=== PATIENT | male | born 1975 | race Two or more races ===

== ENCOUNTER 2022-02-25 18:55 | Inpatient (IN) | payer MEDICAID, OTHER ==
[~2022-02-25] VITALS: Ht 160 cm; Wt 72.5 kg
[2022-02-25 20:22] LABS: Basophils # (auto) 0 10 ^3/uL (0-0.2); Eosinophils # (auto) 0 10 ^3/uL (0-0.8); Eosinophils % (auto) 0.3 % (0.0-7.0); Lymphocytes # (auto) 0.8 10 ^3/uL (0.4-5.4); Monocytes # (auto) 0.5 10 ^3/uL (0-1.3)
[2022-02-25 20:23] LABS: Basophils % (auto) 0.4 % (0.0-2.0); Hematocrit 27.7 % (41.0-53.0); Hemoglobin 9.9 g/dL (13.5-17.5); Mean Corpuscular Hemoglobin 36.9 pg (28.0-32.0); Mean Corpuscular Hgb Conc. 35.9 g/dL (32.0-36.0); Mean Corpuscular Volume 102.9 fL (80.0-100.0); Monocytes % (auto) 8.2 % (0.0-12.0); Neutrophils # (auto) 4.5 10 ^3/uL (1.6-8.6); Neutrophils % (auto) 77.1 % (37.0-80.0); Red Blood Cells 2.69 10^6/uL (4.5-5.90); Red Cell Distribution Width 16.3 % (11.8-14.3); White Blood Cell 5.8 10^3/uL (4.4-10.8)
[2022-02-25 20:38] LABS: Albumin 1.8 g/dL (3.4-5.0); BUN/Creatinine Ratio 17.1; Calcium 8.1 mg/dL (8.5-10.1); Potassium 4.7 mmol/L (3.5-5.1)
[2022-02-25 20:40] LABS: Bilirubin, Total 3.9 mg/dL (0.2-1.0)
[2022-02-25 20:46] LABS: INR 1.33 (0.9-1.15)
[2022-02-25] MEDS ORDERED: LACTULOSE 10g/15ml SOLN 473ML PR ONE (21:00)
[2022-02-25] MEDS ORDERED: MORPHINE SULFATE INJ 2 MG/ml SYRG IV PRN (21:30)
[2022-02-25] MEDS ORDERED: ONDANSETRON HCL 4 MG/2 ML VIAL IV PRN (21:30)
[2022-02-25] MEDS ORDERED: NITROGLYCERIN 0.4 MG SL TAB SL PRN (21:30)
[2022-02-25] MEDS ORDERED: LACTULOSE 20Gm/30ML SOLN ONE (22:21)
[2022-02-26] MEDS ORDERED: LACTULOSE 20Gm/30ML SOLN ONE (04:09)
[2022-02-26] MEDS: LACTULOSE 10g/15ml SOLN 473ML PR SCH ×2 (04:21→09:19)
[2022-02-26] MEDS ORDERED: ALBUMIN 5% 250 ML IV ONE (04:45)
[2022-02-26] MEDS: SPIRONOLACTONE 25 MG TAB PO SCH ×2 (05:55→18:09)
[2022-02-26 06:38] LABS: Basophils # (auto) 0 10 ^3/uL (0-0.2); Eosinophils # (auto) 0 10 ^3/uL (0-0.8); Hemoglobin 9.1 g/dL (13.5-17.5); Lymphocytes # (auto) 0.9 10 ^3/uL (0.4-5.4); Monocytes # (auto) 0.5 10 ^3/uL (0-1.3)
[2022-02-26 06:43] LABS: Albumin 1.9 g/dL (3.4-5.0); BUN/Creatinine Ratio 19.9; Calcium 7.9 mg/dL (8.5-10.1); Potassium 4.7 mmol/L (3.5-5.1)
[2022-02-26 06:46] LABS: Bilirubin, Total 4.2 mg/dL (0.2-1.0); Total Protein 7.5 g/dL (6.4-8.2)
[2022-02-26 07:03] LABS: Basophils % (auto) 0.3 % (0.0-2.0); Eosinophils % (auto) 0.6 % (0.0-7.0); Hematocrit 25.5 % (41.0-53.0); Lymphocytes % (auto) 17.7 % (10.0-50.0); Mean Corpuscular Hemoglobin 36.5 pg (28.0-32.0); Mean Corpuscular Hgb Conc. 35.5 g/dL (32.0-36.0); Mean Corpuscular Volume 102.7 fL (80.0-100.0); Monocytes % (auto) 8.9 % (0.0-12.0); Neutrophils # (auto) 3.8 10 ^3/uL (1.6-8.6); Neutrophils % (auto) 72.5 % (37.0-80.0); Nucleated Red Blood Cells % 0.2 %; Red Blood Cells 2.48 10^6/uL (4.5-5.90); Red Cell Distribution Width 15.7 % (11.8-14.3); White Blood Cell 5.3 10^3/uL (4.4-10.8)
[2022-02-26] MEDS: rifAXIMin 550 MG TAB PO SCH ×2 (09:10→21:51)
[2022-02-26] MEDS: FUROSEMIDE 40 MG TAB PO SCH (09:10)
[2022-02-26] MEDS: PANTOPRAZOLE 40 MG/10 ML VIAL INJ IV SCH (09:10)
[2022-02-26] MEDS: LACTULOSE 20Gm/30ML SOLN PO SCH ×3 (10:39→21:50)
[2022-02-27] VITALS: BP 128/85
[2022-02-27 01:04] VITALS: BP 128/85
[2022-02-27 04:54] VITALS: BP 128/76
[2022-02-27 05:12] LABS: Basophils # (auto) 0.1 10 ^3/uL (0-0.2); Eosinophils # (auto) 0.1 10 ^3/uL (0-0.8); Eosinophils % (auto) 0.8 % (0.0-7.0); Lymphocytes % (auto) 15.8 % (10.0-50.0); Monocytes # (auto) 0.7 10 ^3/uL (0-1.3); Monocytes % (auto) 9.5 % (0.0-12.0)
[2022-02-27 05:14] LABS: Basophils % (auto) 1.2 % (0.0-2.0); Hematocrit 23.1 % (41.0-53.0); Lymphocytes # (auto) 1.1 10 ^3/uL (0.4-5.4); Mean Corpuscular Hemoglobin 35.9 pg (28.0-32.0); Mean Corpuscular Hgb Conc. 34.6 g/dL (32.0-36.0); Mean Corpuscular Volume 103.7 fL (80.0-100.0); Neutrophils # (auto) 5.3 10 ^3/uL (1.6-8.6); Neutrophils % (auto) 72.7 % (37.0-80.0); Red Blood Cells 2.22 10^6/uL (4.5-5.90); Red Cell Distribution Width 16.4 % (11.8-14.3); White Blood Cell 7.2 10^3/uL (4.4-10.8)
[2022-02-27 05:26] LABS: BUN/Creatinine Ratio 21.8; Calcium 7.6 mg/dL (8.5-10.1); Potassium 4.5 mmol/L (3.5-5.1)
[2022-02-27] MEDS: LACTULOSE 20Gm/30ML SOLN PO SCH ×3 (06:12→21:33)
[2022-02-27] MEDS: SPIRONOLACTONE 25 MG TAB PO SCH ×2 (06:12→18:37)
[2022-02-27 09:00] VITALS: BP 123/72
[2022-02-27] MEDS: PANTOPRAZOLE 40 MG/10 ML VIAL INJ IV SCH (09:33)
[2022-02-27] MEDS: rifAXIMin 550 MG TAB PO SCH ×2 (09:33→21:33)
[2022-02-27] MEDS: FUROSEMIDE 40 MG TAB PO SCH (09:34)
[2022-02-27 18:38] VITALS: BP 118/73
[2022-02-27 21:40] VITALS: BP 108/75
[2022-02-28 04:58] LABS: Basophils # (auto) 0 10 ^3/uL (0-0.2); Eosinophils # (auto) 0.1 10 ^3/uL (0-0.8); Eosinophils % (auto) 1.5 % (0.0-7.0); Lymphocytes # (auto) 1.2 10 ^3/uL (0.4-5.4); Lymphocytes % (auto) 16.8 % (10.0-50.0); Monocytes # (auto) 0.7 10 ^3/uL (0-1.3); White Blood Cell 7.1 10^3/uL (4.4-10.8)
[2022-02-28 05:00] VITALS: BP 104/64
[2022-02-28 05:03] LABS: Basophils % (auto) 0.4 % (0.0-2.0); Hematocrit 23.2 % (41.0-53.0); Mean Corpuscular Hemoglobin 35.8 pg (28.0-32.0); Mean Corpuscular Hgb Conc. 34.6 g/dL (32.0-36.0); Mean Corpuscular Volume 103.5 fL (80.0-100.0); Monocytes % (auto) 10.2 % (0.0-12.0); Neutrophils # (auto) 5.1 10 ^3/uL (1.6-8.6); Neutrophils % (auto) 71.1 % (37.0-80.0); Red Blood Cells 2.25 10^6/uL (4.5-5.90); Red Cell Distribution Width 15.8 % (11.8-14.3)
[2022-02-28 05:28] LABS: BUN/Creatinine Ratio 18.5; Calcium 7.6 mg/dL (8.5-10.1); Potassium 4.5 mmol/L (3.5-5.1)
[2022-02-28] MEDS: SPIRONOLACTONE 25 MG TAB PO SCH ×2 (06:00→18:00)
[2022-02-28] MEDS: LACTULOSE 20Gm/30ML SOLN PO SCH ×3 (06:05→20:42)
[2022-02-28 06:12] VITALS: BP 99/60
[2022-02-28 09:01] VITALS: BP 96/56
[2022-02-28] MEDS: PANTOPRAZOLE 40 MG/10 ML VIAL INJ IV SCH (09:08)
[2022-02-28] MEDS: rifAXIMin 550 MG TAB PO SCH ×2 (09:08→20:42)
[2022-02-28] MEDS: FUROSEMIDE 40 MG TAB PO SCH (09:08)
[2022-02-28] MEDS ORDERED: MORPHINE SULFATE INJ 2 MG/ml SYRG IV PRN (11:15)
[2022-02-28 13:26] VITALS: BP 104/65
[2022-02-28 16:57] VITALS: BP 94/54
[2022-02-28 21:09] VITALS: BP 103/65
[2022-03-01 05:06] VITALS: BP 106/69
[2022-03-01] MEDS: LACTULOSE 20Gm/30ML SOLN PO SCH ×2 (06:05→14:00)
[2022-03-01] MEDS: SPIRONOLACTONE 25 MG TAB PO SCH (06:06)
[2022-03-01 07:05] LABS: Basophils # (auto) 0 10 ^3/uL (0-0.2); Basophils % (auto) 0.5 % (0.0-2.0); Eosinophils # (auto) 0.1 10 ^3/uL (0-0.8); Monocytes # (auto) 0.6 10 ^3/uL (0-1.3); Nucleated Red Blood Cells % 0.1 %; Red Blood Cells 2.18 10^6/uL (4.5-5.90)
[2022-03-01 07:10] LABS: Eosinophils % (auto) 1.2 % (0.0-7.0); Hematocrit 22.6 % (41.0-53.0); Lymphocytes # (auto) 1.1 10 ^3/uL (0.4-5.4); Lymphocytes % (auto) 21.3 % (10.0-50.0); Mean Corpuscular Hemoglobin 36.5 pg (28.0-32.0); Mean Corpuscular Hgb Conc. 35.2 g/dL (32.0-36.0); Mean Corpuscular Volume 103.5 fL (80.0-100.0); Monocytes % (auto) 11.3 % (0.0-12.0); Neutrophils # (auto) 3.4 10 ^3/uL (1.6-8.6); Neutrophils % (auto) 65.7 % (37.0-80.0); Red Cell Distribution Width 15.6 % (11.8-14.3); White Blood Cell 5.2 10^3/uL (4.4-10.8)
[2022-03-01 07:25] LABS: Potassium 4.4 mmol/L (3.5-5.1)
[2022-03-01 07:29] LABS: BUN/Creatinine Ratio 16.5; Calcium 7.8 mg/dL (8.5-10.1)
[2022-03-01 09:00] VITALS: BP 101/63
[2022-03-01] MEDS ORDERED: LACT10SO3 PO (09:44)
[2022-03-01] MEDS ORDERED: FURO40TA4 PO (09:44)
[2022-03-01] MEDS ORDERED: RIFA550T PO (09:44)
[2022-03-01] MEDS ORDERED: SPIR25TA PO (09:44)
[2022-03-01] MEDS: PANTOPRAZOLE 40 MG/10 ML VIAL INJ IV SCH (10:27)
[2022-03-01] MEDS: FUROSEMIDE 40 MG TAB PO SCH (10:31)
[2022-03-01] MEDS: rifAXIMin 550 MG TAB PO SCH (10:32)
[2022-03-01 12:39] VITALS: BP 101/63
[2022-03-01 13:00] VITALS: BP 106/69
== END 2022-03-01 17:33 | disposition home or self-care (01) | DRG 279 ==
LOC: EDBD 18:55 → ER 18:55 → TELE 21:22 → TELE-CENTR 02-26 23:37 → CENTRAL 02-28 10:47
PROVIDERS: ADMIT Nurse Practitioner; ATTEND Internal Medicine Pulmonary Disease
PROC: 0W9G3ZZ Drainage of Peritoneal Cavity, Percutaneous Approach (ICD-10-PCS; principal; 2022-02-27)
DX: K72.90 Hepatic failure, unspecified without coma (principal); K76.7 Hepatorenal syndrome; D61.818 Other pancytopenia; E43 Unspecified severe protein-calorie malnutrition; D68.9 Coagulation defect, unspecified; R18.8 Other ascites; K74.60 Unspecified cirrhosis of liver; Z20.822 Contact with and (suspected) exposure to COVID-19; Z68.27 Body mass index [BMI] 27.0-27.9, adult
CPT/HCPCS: 36415; 70450; 71045; 76705; 76942; 80048; 80053; 82140; 83986; 85025; 85610; 87205; 89051; 93005; C9113; G0378; J2405

== ENCOUNTER 2022-03-12 21:47 | Inpatient (IN) | payer MEDICAID ==
[~2022-03-12] VITALS: Ht 167.6 cm; Wt 65.0 kg
[~2022-03-12 21:47] MED LIST: FURO40TA4 PO; LACT10SO3 PO; RIFA550T PO; SPIR25TA PO
[2022-03-12] MEDS ORDERED: LACTULOSE 20Gm/30ML SOLN PO ONE (22:15)
[2022-03-13] VITALS (7 sets, daily range): BP systolic 90–117; BP diastolic 52–72
[2022-03-13 00:19] LABS: Albumin 1.6 g/dL (3.4-5.0); Calcium 7.8 mg/dL (8.5-10.1); Potassium 5.1 mmol/L (3.5-5.1)
[2022-03-13 00:21] LABS: Bilirubin, Total 3.5 mg/dL (0.2-1.0); INR 1.38 (0.9-1.15); Partial Thromboplastin Time 37.9 sec (23.6-33.0); Total Protein 7.6 g/dL (6.4-8.2)
[2022-03-13 00:26] LABS: Mean Corpuscular Hgb Conc. 34.6 g/dL (32.0-36.0); Nucleated Red Blood Cells % 0.1 %; Red Blood Cells 2.49 10^6/uL (4.5-5.90); Red Cell Distribution Width 15.6 % (11.8-14.3)
[2022-03-13 00:28] LABS: Basophils # (auto) 0 10 ^3/uL (0-0.2); Basophils % (auto) 0.5 % (0.0-2.0); Eosinophils # (auto) 0 10 ^3/uL (0-0.8); Eosinophils % (auto) 0.3 % (0.0-7.0); Hematocrit 25.3 % (41.0-53.0); Hemoglobin 8.8 g/dL (13.5-17.5); Lymphocytes # (auto) 0.9 10 ^3/uL (0.4-5.4); Lymphocytes % (auto) 16.1 % (10.0-50.0); Mean Corpuscular Hemoglobin 35.2 pg (28.0-32.0); Mean Corpuscular Volume 101.6 fL (80.0-100.0); Monocytes # (auto) 0.6 10 ^3/uL (0-1.3); Monocytes % (auto) 10.1 % (0.0-12.0); Neutrophils # (auto) 4.1 10 ^3/uL (1.6-8.6); White Blood Cell 5.6 10^3/uL (4.4-10.8)
[2022-03-13] MEDS ORDERED: MORPHINE SULFATE INJ 2 MG/ml SYRG IV PRN (01:30)
[2022-03-13] MEDS ORDERED: NITROGLYCERIN 0.4 MG SL TAB SL PRN (01:30)
[2022-03-13] MEDS ORDERED: ONDANSETRON HCL 4 MG/2 ML VIAL IV PRN (01:30)
[2022-03-13] MEDS: LACTULOSE 10g/15ml SOLN 473ML PR SCH ×2 (03:30→06:00)
[2022-03-13] MEDS ORDERED: LACTULOSE 20Gm/30ML SOLN ONE (05:31)
[2022-03-13] MEDS: SPIRONOLACTONE 25 MG TAB PO SCH ×2 (06:00→17:37)
[2022-03-13] MEDS: LACTULOSE 20Gm/30ML SOLN PO SCH ×3 (06:37→22:05)
[2022-03-13] MEDS: FUROSEMIDE 40 MG TAB PO SCH (10:00)
[2022-03-13] MEDS ORDERED: ALBUMIN 25% 50 ML IV ONE (11:30)
[2022-03-13] MEDS: rifAXIMin 550 MG TAB PO SCH ×2 (11:54→22:05)
[2022-03-13] MEDS ORDERED: phytonadione 10 MG in SODIUM CHL 0.9% 50 ML IV ONE (14:15)
[2022-03-14] VITALS (13 sets, daily range): BP systolic 86–110; BP diastolic 48–67
[2022-03-14 05:41] LABS: Basophils # (auto) 0 10 ^3/uL (0-0.2); Eosinophils # (auto) 0 10 ^3/uL (0-0.8); Lymphocytes # (auto) 1.1 10 ^3/uL (0.4-5.4); Monocytes # (auto) 0.7 10 ^3/uL (0-1.3)
[2022-03-14 05:42] LABS: Basophils % (auto) 0.4 % (0.0-2.0); Hematocrit 22.9 % (41.0-53.0); Hemoglobin 8.3 g/dL (13.5-17.5); Lymphocytes % (auto) 23.6 % (10.0-50.0); Mean Corpuscular Hemoglobin 36.4 pg (28.0-32.0); Mean Corpuscular Hgb Conc. 36.1 g/dL (32.0-36.0); Mean Corpuscular Volume 100.6 fL (80.0-100.0); Monocytes % (auto) 14.7 % (0.0-12.0); Neutrophils # (auto) 2.8 10 ^3/uL (1.6-8.6); Neutrophils % (auto) 60.3 % (37.0-80.0); Nucleated Red Blood Cells % 0.1 %; Red Blood Cells 2.27 10^6/uL (4.5-5.90); Red Cell Distribution Width 15.6 % (11.8-14.3); White Blood Cell 4.7 10^3/uL (4.4-10.8)
[2022-03-14 05:44] LABS: Albumin 1.3 g/dL (3.4-5.0); BUN/Creatinine Ratio 15.7; Calcium 7.3 mg/dL (8.5-10.1)
[2022-03-14 05:47] LABS: Bilirubin, Total 2.5 mg/dL (0.2-1.0); Total Protein 6.1 g/dL (6.4-8.2)
[2022-03-14] MEDS: SPIRONOLACTONE 25 MG TAB PO SCH ×2 (06:12→22:15)
[2022-03-14] MEDS: LACTULOSE 20Gm/30ML SOLN PO SCH ×3 (06:12→22:19)
[2022-03-14] MEDS ORDERED: LIDOCAINE 2%HCL (LOCAL ANESTH.) INJ 10ml MDV ONE (11:41)
[2022-03-14] MEDS: FUROSEMIDE 40 MG TAB PO SCH (16:06)
[2022-03-14] MEDS: rifAXIMin 550 MG TAB PO SCH ×2 (16:07→22:20)
[2022-03-14] MEDS: ALBUMIN 25% 100 ML IV SCH ×2 (16:10→22:16)
[2022-03-15] MEDS: ALBUMIN 25% 100 ML IV SCH (04:11)
[2022-03-15 05:00] VITALS: BP 105/62
[2022-03-15] MEDS: LACTULOSE 20Gm/30ML SOLN PO SCH ×2 (06:07→14:19)
[2022-03-15] MEDS: SPIRONOLACTONE 25 MG TAB PO SCH (06:07)
[2022-03-15 07:12] LABS: Basophils # (auto) 0 10 ^3/uL (0-0.2); Basophils % (auto) 0.5 % (0.0-2.0); Hemoglobin 7.3 g/dL (13.5-17.5); Lymphocytes # (auto) 0.9 10 ^3/uL (0.4-5.4); Mean Corpuscular Volume 101.1 fL (80.0-100.0); Monocytes # (auto) 0.4 10 ^3/uL (0-1.3); Red Blood Cells 2.04 10^6/uL (4.5-5.90)
[2022-03-15 07:14] LABS: Eosinophils # (auto) 0.1 10 ^3/uL (0-0.8); Eosinophils % (auto) 1.6 % (0.0-7.0); Hematocrit 20.7 % (41.0-53.0); Mean Corpuscular Hemoglobin 35.7 pg (28.0-32.0); Mean Corpuscular Hgb Conc. 35.3 g/dL (32.0-36.0); Monocytes % (auto) 13.8 % (0.0-12.0); Neutrophils # (auto) 1.8 10 ^3/uL (1.6-8.6); Neutrophils % (auto) 57.1 % (37.0-80.0); Red Cell Distribution Width 15.2 % (11.8-14.3); White Blood Cell 3.2 10^3/uL (4.4-10.8)
[2022-03-15 07:23] LABS: BUN/Creatinine Ratio 17.7; Calcium 7.4 mg/dL (8.5-10.1); Potassium 4.7 mmol/L (3.5-5.1)
[2022-03-15 07:24] LABS: INR 1.54 (0.9-1.15); Partial Thromboplastin Time 45.5 sec (23.6-33.0)
[2022-03-15 08:00] VITALS: BP 100/53
[2022-03-15 09:00] VITALS: BP 100/53
[2022-03-15] MEDS: FUROSEMIDE 40 MG TAB PO SCH (09:29)
[2022-03-15] MEDS: rifAXIMin 550 MG TAB PO SCH (09:30)
[2022-03-15 12:54] VITALS: BP 125/84
[2022-03-15 15:02] VITALS: BP 94/51
== END 2022-03-15 19:00 | disposition home or self-care (01) | DRG 279 ==
LOC: EDBD 21:47 → ER 21:47 → TELE 03-13 01:17 → TELE-CENTR 03-13 09:00
PROVIDERS: ADMIT Nurse Practitioner; ATTEND Internal Medicine Pulmonary Disease
PROC: 0W9G3ZZ Drainage of Peritoneal Cavity, Percutaneous Approach (ICD-10-PCS; principal; 2022-03-13)
DX: K72.90 Hepatic failure, unspecified without coma (principal); D61.818 Other pancytopenia; E43 Unspecified severe protein-calorie malnutrition; J90 Pleural effusion, not elsewhere classified; D68.9 Coagulation defect, unspecified; R18.8 Other ascites; K74.3 Primary biliary cirrhosis; I10 Essential (primary) hypertension; Z20.822 Contact with and (suspected) exposure to COVID-19; R74.8 Abnormal levels of other serum enzymes; Z82.49 Family history of ischemic heart disease and other diseases of the circulatory system; Z83.438 Family history of other disorder of lipoprotein metabolism and other lipidemia
CPT/HCPCS: 36415; 70450; 71045; 71250; 74176; 76604; 76705; 76942; 80048; 80053; 82140; 83615; 83880; 83986; 84484; 85025; 85610; 85730; 87205; 89051; 99291; G0378; J2001; J3430; P9047